=== PATIENT | male | born 1965 | race Caucasian/White ===

== ENCOUNTER → 2025-06-26 10:32 | Outpatient (REF) | payer OTHER, SELFPAY ==
[2025-06-27 16:43] LABS: Mumps Virus IgG Positive; Varicella Zoster IgG (VZV) Positive
== END ==
LOC: OHS 10:32
PROVIDERS: ATTENDING PHYSICIAN Nurse Practitioner Family
DX: Z23 Encounter for immunization (principal)
CPT/HCPCS: 36415; 86480; 86706; 86735; 86762; 86765; 86787